=== PATIENT | male | born 1985 | race Caucasian/White ===

== ENCOUNTER → 2017-04-12 | Outpatient (CLI) | payer BC ==
--- NOTE | 2017-04-12 12:09 | XR ---
EXAMINATION TYPE: XR chest 2V DATE OF EXAM: 04/12/2017 COMPARISON: NONE HISTORY: Difficulty breathing with history of tobacco abuse TECHNIQUE: Frontal and lateral views of the chest are obtained. FINDINGS: The lungs are hyperaerated with flattening of the diaphragms on the lateral image. There i s also increased anterior posterior diameter of the chest and tapering of the peripheral pulmonary va sculature with biapical lucencies all related to underlying COPD. No focal consolidation, pleural eff usion or pneumothorax is seen. There is elongation of the cardiomediastinal silhouette, also related to underlying COPD with no cardiomegaly identified. Minimal degenerative changes are seen of the thor acic spine. IMPRESSION: Radiographic sequela of COPD. No focal consolidation to suggest acute pneumonia.
== END | disposition home or self-care (01) ==
LOC: RADXRMAIN 11:00
PROVIDERS: ATTEND Family Medicine
DX: J44.9 Chronic obstructive pulmonary disease, unspecified (principal)
CPT/HCPCS: 71020